=== PATIENT | female | born 1995 | race Two or more races ===

== ENCOUNTER 2025-04-19 17:26 | Emergency (ER) | payer MEDICAID, SELFPAY ==
[2025-04-19 17:45] VITALS: BP 128/87; PULSE 87; RESP 18; TEMP 36.7; O2SAT 98; BMI 33.5
--- NOTE | 2025-04-19 17:51 | XR_ITS ---
Examination: Complete OB ultrasound, less than 14 weeks, transabdominal Date and time of exam: April 19, 2025, 1914 hours INDICATIONS: Vaginal bleeding beginning 2 weeks ago. Technique: Obstetrical ultrasound images less than 14 weeks performed via transabdominal imaging Findings: A normal shaped single intrauterine gestation is present in the uterus. CRL 4.3 cm corresponds to 11 weeks 1 day gestational age Cardiac motion 158 bpm Urinary fibroid degeneration 32 mm Subchorionic hemorrhage 57 x 62 mm Ultrasonographic survey of visible and placental structures unremarkable. Amniotic fluid volume appears appropriate for this estimated gestational age. Right ovary 4.4 cm arterial flow 21 mm corpus luteum cyst Left ovary 3.4 cm arterial flow IMPRESSION: Viable intrauterine gestation 11 weeks 1 day Recommend short-term follow-up given the subchorionic hemorrhage.
--- NOTE | 2025-04-19 17:51 | PD.EDRME ---
Rapid Medical Screening Exam RME Arrival date/time: 04/19/25 17:26 29-year-old female presents to the emergency department for complaints of spotting for the last couple of weeks reports heavy bleeding today patient reports being approximate 10 weeks. Chief Complaint: Vaginal Bleeding Vital signs: Vital Signs Temperature 98.1 F 04/19/25 17:45 Pulse Rate 87 04/19/25 17:45 Respiratory Rate 18 04/19/25 17:45 Blood Pressure 128/87 H 04/19/25 17:45 Pulse Oximetry (%) 98 04/19/25 17:45 Oxygen Delivery Method Room Air 04/19/25 17:45 Vital signs reviewed by provider: Yes Exam: On exam well-appearing does not appear look toxic Clinical Impression: Lab work and imaging obtained
[2025-04-19 18:45] LABS: Basophils # (Auto) 0.0 Thou/mm3 (0.0-0.2); Basophils % (Auto) 0 % (0-2.5); Eosinophils # (Auto) 0.1 Thou/mm3 (0.0-0.5); Eosinophils % (Auto) 2 % (0-10); Hematocrit 29.2 % (36.0-46.0); Immature Granulocytes Auto 0.03 Thou/mm3 (0.00-0.00); Lymphocytes # (Auto) 2.8 Thou/mm3 (1.0-4.8); Lymphocytes % (Auto) 32 % (10-50); Mean Corpuscular HGB Conc 29.1 g/dl (31.0-37.0); Mean Corpuscular Hemoglobin 17.3 pg (25.0-35.0); Mean Corpuscular Volume 59 fL (80-100); Monocytes # (Auto) 0.4 Thou/mm3 (0.0-0.8); Monocytes % (Auto) 5 % (0-12); Neutrophils # (Auto) 5.3 Thou/mm3 (1.8-7.7); Neutrophils % (Auto) 61 % (37-80); Nucleated Red Blood Cell # 0.00 Thou/mm3 (0.00-0.00); Nucleated Red Blood Cell % 0 /100 WBC (0); Platelet Count 380 Thou/mm3 (140-440); RDW Standard Deviation 40.5 fL (36.4-46.3); Red Blood Count 4.92 Miln/mm3 (4.00-5.20); White Blood Count 8.7 Thou/mm3 (3.6-11.0)
[2025-04-19 18:46] LABS: Hemoglobin 8.5 g/dL (12.0-16.0)
[2025-04-19 19:06] LABS: Alanine Aminotransferase 8 U/L (10-49); Albumin, Serum 4.3 gm/dL (3.5-5.0); Albumin/Globulin Ratio 1.3 (1.2-2.2); Alkaline Phosphatase 85 U/L (46-116); Anion Gap 10 (7-16); Aspartate Amino Transferase 12 U/L (0-34); BUN/Creatinine Ratio 14 Ratio (12-20); Bilirubin,Total 0.3 mg/dL (0.3-1.2); Blood Urea Nitrogen 10 mg/dL (9-23); Calcium 9.5 mg/dL (8.3-10.6); Calcium (Corrected) 9.5 mg/dL (8.5-10.1); Carbon Dioxide 24.1 mMol/L (20.0-31.0); Chloride 105 mMol/L (98-107); Creatinine (Component) 0.7 mg/dL (0.6-1.3); Estimated Creatinine Clearance 139.3 mL/min (>60); Globulin 3.3 gm/dL (2.3-3.5); Glucose 109 mg/dL (74-106); Osmolality,Calculated 277 (275-295); Potassium 4.1 mMol/L (3.4-5.1); Sodium 139 mMol/L (136-145); Total Protein 7.6 gm/dL (5.7-8.2); eGFR > 60 See Note
[2025-04-19 19:09] LABS: Path Review Blood Smear Sent to Pathologist
--- NOTE | 2025-04-19 22:48 | EDNOTE_ITS ---
ED OB Contraction Preg RMI/HPI General Chief complaint: Vaginal Bleeding Stated complaint: Vaginal bleeding today, Time Seen by Provider: 04/19/25 18:07 Source: patient Arrival date/time: 04/19/25 17:26 Mode of arrival: ambulatory Limitations: no limitations RME / HPI RME / HPI Narrative: 04/19/25 17:26 29-year-old female presents to the emergency department for complaints of spotting for the last couple of weeks reports heavy bleeding today patient reports being approximate 10 weeks. No specific complaints patient is and states the bleeding has came on heavily today which resulted in her having some anxiety related to the health of her fetus. Exam: On exam well-appearing does not appear look toxic Impression: Lab work and imaging obtained Related Data : 4 Para: 2 Home Medications ?Medication ?Instructions ?Recorded ?Confirmed prenat.vits,naz,[id number] 1 tab PO QDAY 02/27/23 04/16/23 Allergies Allergy/AdvReac Type Severity Reaction Status Date / Time No Known Allergies Allergy Verified 04/19/25 17:31 Review of Systems Review of Systems Systems Reviewed: All systems reviewed, normal except as documented Past Medical History Past Medical History NEUROLOGIC: Negative Seizures CARDIAC: Negative Congestive Heart Failure RESPIRATORY: Negative Chronic Obstructive Pulmonary Disease (COPD) GENITOURINARY: Negative Renal Disease ENDOCRINE: Negative Diabetes Mellitus Type 1 or Diabetes Mellitus Type 2 OTHER HISTORY: Negative Blood Transfusions, Blood Transfusion Reaction or Anesthesia Reactions Surgical History SURGICAL: Positive Section Social History SMOKING STATUS: Never smoker SECOND HAND EXPOSURE: No ED Exam General Limitations: Present no limitations General appearance: Present alert and in distress (Mild distress due to abdominal pain and anxiety related to her vaginal bleeding concerns.) Head Head exam: Present atraumatic Eye Eye exam: Present normal appearance, PERRL and EOMI ENT ENT exam: Present normal exam, normal oropharynx and mucous membranes moist Neck Neck exam: Present normal inspection, full ROM and trachea midline Chest Chest inspection: Present normal inspection and symmetric chest wall rise Respiratory Respiratory exam: Present normal lung sounds bilaterally Cardiovascular Cardiovascular exam: Present regular rate, normal rhythm and normal heart sounds Abdominal Exam Abdominal exam: Present other (Diffuse bilateral lower pelvic tenderness to palpation without any signs of trauma. appreciated.) Extremities Exam Extremities exam: Present normal inspection and full ROM Back Exam Back exam: Present normal inspection and full ROM Neurological Exam Neurological exam: Present alert, oriented X3 and CN II-XII intact Psychiatric Psychiatric exam: Present normal affect and normal mood Skin Skin exam: Present warm, dry, intact and normal color Course Quality Measures none Orders Category Date Time Status US OB <= 14 weeks fetus Stat Exams 04/19/25 17:51 Completed ABO/RH Type Stat Lab 04/19/25 18:19 Completed Beta HCG,Quantitative Stat Lab 04/19/25 18:19 Completed CBC Stat Lab 04/19/25 18:19 Completed Comprehensive Metabolic Panel Stat Lab 04/19/25 18:19 Completed Path Review Blood Smear Stat Lab 04/19/25 18:19 Completed As noted above Vital Signs Vital signs: Vital Signs Temperature 98.1 F 04/19/25 17:45 Pulse Rate 87 04/19/25 17:45 Respiratory Rate 18 04/19/25 17:45 Blood Pressure 128/87 H 04/19/25 17:45 Pulse Oximetry (%) 98 04/19/25 17:45 Oxygen Delivery Method Room Air 04/19/25 17:45 As noted above Vaginal Bleeding MDM Narrative MDM Narrative: All studies performed the ED were evaluated by me personally. Serum studies [place] [address]. Ultrasound confirmed an 11- week 1 day viable with an additional notation of a subarachnoid hemorrhage. Patient been advised of laboratory findings in addition, advised to follow-up with [employer] [facility] for discussions related to today's visit and subchorionic concerns. Advised patient that she may require bed rest at some point in time. Patient data External records reviewed:: [facility] previous records Clinical information provided by:: patient Social determinants that could affect healthcare access:: none Patient has the following chronic illnesses:: None How is presenting disease/condition affected by chronic disease/condition?: uneffected by Evaluation data The following diagnostics were reviewed and interpreted by me:: lab results and radiology exam(s) Lab and/or radiology exams considered but not ordered:: None Interpretation Summary: , subchorionic hemorrhage, anemia Medications / Prescriptions Medications or Prescriptions considered but not ordered:: None Medication administrations:: None Consultations Consultation(s) initiated? (list below): No Diagnosis Vaginal Bleeding Differential Diagnosis: threatened , dysfunctional uterine bleeding, incomplete and other (Subchorionic hemorrhage) Most likely diagnosis given after review of the tests above:: Subchorionic hemorrhage Admission Indicated Admission indicated?: not indicated Explain why admission is indicated or not indicated:: Unwarranted Admission Request Was there a request for admission?: No Disposition Plan Disposition Plan: Discharge Discharge Attestation Discharge Attestation: The patient and all family members were given an opportunity to ask questions and understood the discharge instructions. Discharge instructions specifically effects, indications for sooner follow up or return to the emergency department, and the expected course of current diagnosis. Patient condition: Stable Discharge Plan Plan Patient Disposition: HOME (Self Care) Prescriptions/Referrals Prescriptions/Med Rec: No Action prenat.vits,naz,[id number] Tablet 1 tab PO QDAY Referrals: Daria Cope NP [Primary Care Provider] - In 1 week Problem List Clinical Impression: Subchorionic hemorrhage in first trimester Patient/Caregiver Discharge Instructions Education Materials: Bleeding During Early Additional Instructions: Advised patient continue utilizing medication dispensed by her OB and primary care provider to address her historic anemic concerns. Patient should follow-up with OB for discussion related to today's visit and long-term management of her subchorionic hemorrhage concern. Print Language: Vietnamese Stand Alone Forms: [facility] Award Info., Patient Portal Info Letter
[2025-04-19 23:06] VITALS: BP 122/76; PULSE 72; RESP 16; TEMP 36.8; O2SAT 98
== END 2025-04-19 23:07 | disposition home or self-care (01) ==
PROVIDERS: Nurse Practitioner Primary Care; Emergency Provider Emergency Medicine
DX: O20.8 Other hemorrhage in early pregnancy (principal); O99.011 Anemia complicating pregnancy, first trimester; D64.9 Anemia, unspecified; Z3A.11 11 weeks gestation of pregnancy
CPT/HCPCS: 36415; 76801; 80053; 84702; 85025; 86900; 86901; 99283